=== PATIENT | female | born 1960 | race Caucasian/White ===

== ENCOUNTER 2017-10-18 13:35 | Inpatient (IN) | payer OTHER ==
[2017-10-18 14:50] LABS: ADD MAN DIFF? NO
[2017-10-18 14:53] LABS: BASOPHILS % 0.6 % (0.0-2.0); EOSINOPHILS # 0.1 10^3/ul (0.0-0.5); EOSINOPHILS % 3.4 % (0.0-7.0); HEMATOCRIT 30.2 % (37.0-47.0); HEMOGLOBIN 9.3 g/dl (12.0-16.0); LYMPHOCYTES # 1.3 10^3/ul (0.8-2.9); LYMPHOCYTES % 41.1 % (15.0-51.0); MEAN CORPUSCULAR HEMOGLOBIN 29.4 pg (29.0-33.0); MEAN CORPUSCULAR HGB CONC 30.8 g/dl (32.0-37.0); MEAN CORPUSCULAR VOLUME 95.6 fl (82.0-101.0); MEAN PLATELET VOLUME 9.5 fl (7.4-10.4); MONOCYTE # 0.3 10^3/ul (0.3-0.9); MONOCYTES % 10.3 % (0.0-11.0); NEUTROPHIL # 1.4 10^3/ul (1.6-7.5); PLATELET COUNT 192 10^3/UL (140-415); RED BLOOD COUNT 3.16 10^6/ul (4.20-5.40); RED CELL DISTRIBUTION WIDTH 13.3 % (11.5-14.5)
[2017-10-18 14:53] LABS: WHITE BLOOD COUNT 3.2 10^3/ul (4.8-10.8)
[2017-10-18 14:58] LABS: HOLD TRANSMISSIONS 1
[2017-10-18 15:10] LABS: INR 0.95; PARTIAL THROMBOPLASTIN TIME 27.7 Sec (25.0-35.0); PROTIME 12.8 Sec (11.9-14.9)
[2017-10-18 15:13] LABS: ALANINE AMINOTRANSFERASE 23 IU/L (13-69); ALBUMIN 3.8 g/dl (3.3-4.9); ALBUMIN/GLOBULIN RATIO 1.22; ALKALINE PHOSPHATASE 39 IU/L (42-121); ANION GAP 12 (8-16); ASPARTATE AMINO TRANSFERASE 21 IU/L (15-46); BILIRUBIN,INDIRECT 0.1 mg/dl (0-1.1); BILIRUBIN,TOTAL 0.1 mg/dl (0.2-1.3); CARBON DIOXIDE 26 mmol/L (21-31); CHLORIDE 107 mmol/L (97-110); GLUCOSE 102 mg/dl (70-220); TOTAL PROTEIN 6.9 g/dl (6.1-8.1)
[2017-10-18 15:15] LABS: BLOOD UREA NITROGEN 46 mg/dl (7-20); CALCIUM 9.3 mg/dl (8.4-10.2); CREATININE 2.19 mg/dl (0.44-1.00); POTASSIUM 4.8 mmol/L (3.5-5.1); SODIUM 140 mmol/L (135-144)
[2017-10-18] MEDS ORDERED: ROPIVACAINE 0.5 % 30 ML VIAL (18:03)
[2017-10-18] MEDS ORDERED: GELATIN SIZE 100 SPONGE (18:03)
[2017-10-18] MEDS ORDERED: THROMBIN 5000 UNIT VIAL (18:04)
[2017-10-18] MEDS ORDERED: POLYMYXIN/BACITRACIN 1L IRRIG ×2 (18:04→18:11)
[2017-10-18] MEDS ORDERED: MIDAZOLAM 1 MG/ML 2 ML INJ (18:25)
[2017-10-18] MEDS ORDERED: METOCLOPRAMIDE 10 MG INJ (18:25)
[2017-10-18] MEDS ORDERED: LABETALOL HCL 20MG INJ (19:00)
[2017-10-18] MEDS ORDERED: SUCCINYLCHOLINE CHLORIDE 100 MG/5 ML SYG IV (19:58)
[2017-10-18] MEDS ORDERED: ROCURONIUM 50 MG INJ (19:58)
[2017-10-18] MEDS ORDERED: PROPOFOL 20 ML (19:58)
[2017-10-18 19:59] LABS: HEMOGLOBIN A1C 6.3 % (0-5.9)
[2017-10-18] MEDS: PROPOFOL 100 ML IV ×3 (21:10→23:40)
[2017-10-18] MEDS: NS + KCL 20 MEQ 1,000 ML IV (21:44)
[2017-10-18 21:52] LABS: AADO2 Arterial 222.2 mmHg (7.0-24.0); Allen Test ACCEPTAB; Arterial Base Excess -4.3 mmol/L (-3.0-3); Arterial Blood Gas Oxygen Sat 98.9 mmHG (95.0-98.0); Arterial COHb 0.1 % (0.0-3.0); Arterial Fraction of Oxyhgb 98.5 % (93.0-99.0); Arterial HCO3 20.5 mmol/L (22.0-26.0); Arterial MetHb 0.3 % (0.0-1.5); Arterial pCO2 36.2 mmhg (35-45); MODE VENT - AC; Site Right Radial
[2017-10-18 22:21] LABS: INR 0.99; PROTIME 13.2 Sec (11.9-14.9)
[2017-10-18 22:22] LABS: PARTIAL THROMBOPLASTIN TIME 28.3 Sec (25.0-35.0)
[2017-10-18] MEDS: LORAZEPAM 2 MG INJ IV (22:42)
[2017-10-18 22:43] LABS: FIBRIN SPLIT PRODUCT <10 ug/ml (<10)
[2017-10-18] MEDS ORDERED: GLUCAGON 1 MG INJ IM (23:00)
[2017-10-18] MEDS ORDERED: GLUCOSE GEL 15 GRAM TUBE PO ×2 (23:00)
[2017-10-18] MEDS ORDERED: DEXTROSE 50% 50 ML SYRINGE IV ×2 (23:00)
[2017-10-18] MEDS ORDERED: GLUCOSE GEL 15 GRAM TUBE BUCCAL (23:00)
[2017-10-19] MEDS: PROPOFOL 100 ML IV ×6 (01:10→13:57)
[2017-10-19] MEDS: LORAZEPAM 2 MG INJ IV (05:14)
[2017-10-19] MEDS: NS + KCL 20 MEQ 1,000 ML IV ×2 (05:14→06:14)
[2017-10-19] MEDS: INSULIN ASPART [NOVOLOG] 3 ML PEN SC ×5 (05:24→21:00)
[2017-10-19] MEDS: morphine 2 MG INJ IV ×3 (08:25→20:40)
[2017-10-19] MEDS: hydrALAzine 20 MG INJ IV (09:06)
[2017-10-19 09:33] LABS: AADO2 Arterial 151.7 mmHg (7.0-24.0); Arterial Base Excess -9.1 mmol/L (-3.0-3); Arterial Blood Gas Oxygen Sat 98.3 mmHG (95.0-98.0); Arterial COHb 0.5 % (0.0-3.0); Arterial Fraction of Oxyhgb 97.2 % (93.0-99.0); Arterial HCO3 15.1 mmol/L (22.0-26.0); Arterial MetHb 0.6 % (0.0-1.5); Arterial Total Hemglobin 7.8 g/dl (12.0-18.0); Arterial pCO2 26.6 mmhg (35-45); MODE VENT - AC; Site A-Line
[2017-10-19 09:40] LABS: ADD MAN DIFF? NO
[2017-10-19 09:44] LABS: BASOPHILS % 0.3 % (0.0-2.0); EOSINOPHILS # 0.1 10^3/ul (0.0-0.5); EOSINOPHILS % 0.8 % (0.0-7.0); HEMOGLOBIN 9.4 g/dl (12.0-16.0); LYMPHOCYTES # 1.5 10^3/ul (0.8-2.9); LYMPHOCYTES % 19.8 % (15.0-51.0); MEAN CORPUSCULAR HEMOGLOBIN 30.2 pg (29.0-33.0); MEAN CORPUSCULAR HGB CONC 32.4 g/dl (32.0-37.0); MEAN CORPUSCULAR VOLUME 93.2 fl (82.0-101.0); MEAN PLATELET VOLUME 9.8 fl (7.4-10.4); MONOCYTE # 0.5 10^3/ul (0.3-0.9); MONOCYTES % 6.7 % (0.0-11.0); NEUTROPHIL # 5.4 10^3/ul (1.6-7.5); NEUTROPHILS % 72.1 % (39.0-77.0); PLATELET COUNT 208 10^3/UL (140-415); RED BLOOD COUNT 3.11 10^6/ul (4.20-5.40); RED CELL DISTRIBUTION WIDTH 13.4 % (11.5-14.5)
[2017-10-19 09:44] LABS: WHITE BLOOD COUNT 7.4 10^3/ul (4.8-10.8)
[2017-10-19] MEDS: FENTAnyl (DRIP) 1000 mcg/100mL 100 ML IV (09:48)
[2017-10-19 10:14] LABS: ALANINE AMINOTRANSFERASE 22 IU/L (13-69); ALBUMIN 3.5 g/dl (3.3-4.9); ALBUMIN/GLOBULIN RATIO 1.12; ALKALINE PHOSPHATASE 40 IU/L (42-121); ANION GAP 12 (8-16); ASPARTATE AMINO TRANSFERASE 21 IU/L (15-46); BLOOD UREA NITROGEN 35 mg/dl (7-20); CALCIUM 8.9 mg/dl (8.4-10.2); CARBON DIOXIDE 22 mmol/L (21-31); CHLORIDE 113 mmol/L (97-110); CREATININE 1.53 mg/dl (0.44-1.00); GLUCOSE 123 mg/dl (70-220); MAGNESIUM 1.9 mg/dl (1.7-2.5); POTASSIUM 4.5 mmol/L (3.5-5.1); SODIUM 142 mmol/L (135-144); TOTAL PROTEIN 6.6 g/dl (6.1-8.1)
[2017-10-19] MEDS: DEXTROSE 5%-0.45% NACL 1,000 ML IV (13:21)
[2017-10-19] MEDS ORDERED: ALPRAZOLAM 0.5 MG TAB (15:04)
[2017-10-19] MEDS: ALBUTEROL/IPRATROPIUM (NEB) 3 ML AMP HHN ×2 (16:35→20:36)
[2017-10-19] MEDS ORDERED: HYDROCODONE/APAP (5/325) TAB PO (17:00)
[2017-10-19 17:38] LABS: AADO2 Arterial 156.7 mmHg (7.0-24.0); Arterial Base Excess -4.4 mmol/L (-3.0-3); Arterial Blood Gas Oxygen Sat 98.4 mmHG (95.0-98.0); Arterial COHb 0.3 % (0.0-3.0); Arterial Fraction of Oxyhgb 97.8 % (93.0-99.0); Arterial HCO3 19.4 mmol/L (22.0-26.0); Arterial MetHb 0.3 % (0.0-1.5); Arterial Total Hemglobin 10.6 g/dl (12.0-18.0); Arterial pCO2 31.4 mmhg (35-45); Blood Gas PS 10; MODE VENT - CPAP; Site A-Line
[2017-10-19] MEDS: SOD CHLORIDE 0.45% 1,000 ML IV (18:08)
[2017-10-19] MEDS: LISINOPRIL 5 MG TAB PO (18:08)
[2017-10-19] MEDS ORDERED: NON-FORMULARY/PATIENT OWN MED (Simvastatin 20 MG) PO (21:00)
[2017-10-19] MEDS: MONTELUKAST 10 MG TAB PO (21:17)
[2017-10-19] MEDS: GABAPENTIN 400 MG CAP PO (21:17)
[2017-10-19] MEDS: NIACIN (ER) 500 MG TAB PO ×2 (21:17→21:23)
[2017-10-19] MEDS: ATORVASTATIN 10 MG TAB PO ×2 (21:17→21:27)
[2017-10-19] MEDS: QUETIAPINE 100 MG TAB PO (21:17)
[2017-10-20] MEDS: ACCU-CHEK XX (02:00)
[2017-10-20] MEDS: SOD CHLORIDE 0.9% 1,000 ML IV ×2 (04:20→05:21)
[2017-10-20] MEDS: PANTOPRAZOLE 40 MG INJ IV (05:16)
[2017-10-20 05:52] LABS: ADD MAN DIFF? NO
[2017-10-20 05:58] LABS: BASOPHILS % 0.3 % (0.0-2.0); EOSINOPHILS % 0.1 % (0.0-7.0); HEMATOCRIT 23.9 % (37.0-47.0); HEMOGLOBIN 7.4 g/dl (12.0-16.0); LYMPHOCYTES # 1.7 10^3/ul (0.8-2.9); LYMPHOCYTES % 24.9 % (15.0-51.0); MEAN CORPUSCULAR HEMOGLOBIN 29.8 pg (29.0-33.0); MEAN CORPUSCULAR VOLUME 96.4 fl (82.0-101.0); MEAN PLATELET VOLUME 9.8 fl (7.4-10.4); MONOCYTE # 0.7 10^3/ul (0.3-0.9); MONOCYTES % 10.1 % (0.0-11.0); NEUTROPHIL # 4.5 10^3/ul (1.6-7.5); NEUTROPHILS % 64.2 % (39.0-77.0); PLATELET COUNT 175 10^3/UL (140-415); RED BLOOD COUNT 2.48 10^6/ul (4.20-5.40)
[2017-10-20] MEDS: SOD CHLORIDE 0.45% 1,000 ML IV (06:26)
[2017-10-20 06:31] LABS: ANION GAP 9 (8-16); BLOOD UREA NITROGEN 29 mg/dl (7-20); CALCIUM 7.9 mg/dl (8.4-10.2); CARBON DIOXIDE 22 mmol/L (21-31); CHLORIDE 111 mmol/L (97-110); CREATININE 1.58 mg/dl (0.44-1.00); GLUCOSE 114 mg/dl (70-220); MAGNESIUM 1.7 mg/dl (1.7-2.5); PHOSPHORUS 3.5 mg/dl (2.5-4.9); SODIUM 138 mmol/L (135-144)
[2017-10-20] MEDS: PROPOFOL 100 ML IV ×2 (07:30→18:00)
[2017-10-20] MEDS: INSULIN ASPART [NOVOLOG] 3 ML PEN SC ×4 (07:35→22:40)
[2017-10-20] MEDS: ALBUTEROL/IPRATROPIUM (NEB) 3 ML AMP HHN ×3 (08:27→20:03)
[2017-10-20] MEDS: LINAGLIPTIN 5 MG TABLET PO (08:40)
[2017-10-20] MEDS: SERTRALINE 100 MG TAB PO (08:40)
[2017-10-20] MEDS: LISINOPRIL 5 MG TAB PO (08:40)
[2017-10-20] MEDS: CALCITRIOL 0.25 MCG CAP PO (08:41)
[2017-10-20] MEDS: FLUTICASONE/VILANTEROL 200-25 INH DEVICE INH (08:41)
[2017-10-20] MEDS: GABAPENTIN 400 MG CAP PO ×3 (08:41→22:22)
[2017-10-20] MEDS: FENOFIBRATE 48 MG TAB PO (08:41)
[2017-10-20] MEDS ORDERED: NON-FORMULARY/PATIENT OWN MED (Fenofibrate, Micronized (Fenofibrate) 54 MG) PO (09:00)
[2017-10-20] MEDS ORDERED: NON-FORMULARY/PATIENT OWN MED (Sitagliptin* (Januvia*) 100 MG) PO (09:00)
[2017-10-20 13:09] LABS: IMMEDIATE SPIN CROSSMATCH 1 1
[2017-10-20] MEDS: EPOETIN 3000 UNITS/1 ML INJ (ESRD) SC (17:59)
[2017-10-20] MEDS: QUETIAPINE 100 MG TAB PO (22:22)
[2017-10-20] MEDS: MONTELUKAST 10 MG TAB PO (22:22)
[2017-10-21] MEDS: SOD CHLORIDE 0.45% 1,000 ML IV ×3 (00:46→16:56)
[2017-10-21] MEDS: ALBUTEROL/IPRATROPIUM (NEB) 3 ML AMP HHN ×4 (01:52→20:11)
[2017-10-21] MEDS: ACCU-CHEK XX (01:54)
[2017-10-21 05:50] LABS: ADD MAN DIFF? NO
[2017-10-21] MEDS: PANTOPRAZOLE 40 MG INJ IV (05:53)
[2017-10-21] MEDS: PROPOFOL 100 ML IV (05:55)
[2017-10-21 05:59] LABS: BASOPHILS % 0.5 % (0.0-2.0); EOSINOPHILS # 0.1 10^3/ul (0.0-0.5); EOSINOPHILS % 1.7 % (0.0-7.0); HEMOGLOBIN 8.8 g/dl (12.0-16.0); LYMPHOCYTES # 2.1 10^3/ul (0.8-2.9); MEAN CORPUSCULAR HEMOGLOBIN 29.7 pg (29.0-33.0); MEAN CORPUSCULAR HGB CONC 31.4 g/dl (32.0-37.0); MEAN CORPUSCULAR VOLUME 94.6 fl (82.0-101.0); MEAN PLATELET VOLUME 9.9 fl (7.4-10.4); MONOCYTE # 0.6 10^3/ul (0.3-0.9); MONOCYTES % 9.1 % (0.0-11.0); NEUTROPHIL # 3.6 10^3/ul (1.6-7.5); NEUTROPHILS % 55.9 % (39.0-77.0); PLATELET COUNT 185 10^3/UL (140-415); RED BLOOD COUNT 2.96 10^6/ul (4.20-5.40); RED CELL DISTRIBUTION WIDTH 14.5 % (11.5-14.5)
[2017-10-21 05:59] LABS: WHITE BLOOD COUNT 6.5 10^3/ul (4.8-10.8)
[2017-10-21 06:27] LABS: ANION GAP 11 (8-16); BLOOD UREA NITROGEN 28 mg/dl (7-20); CALCIUM 8.6 mg/dl (8.4-10.2); CARBON DIOXIDE 22 mmol/L (21-31); CHLORIDE 113 mmol/L (97-110); CREATININE 1.43 mg/dl (0.44-1.00); GLUCOSE 121 mg/dl (70-220); POTASSIUM 4.3 mmol/L (3.5-5.1); SODIUM 142 mmol/L (135-144)
[2017-10-21] MEDS: INSULIN ASPART [NOVOLOG] 3 ML PEN SC ×4 (07:35→21:17)
[2017-10-21] MEDS: LINAGLIPTIN 5 MG TABLET PO (08:12)
[2017-10-21] MEDS: CALCITRIOL 0.25 MCG CAP PO (08:12)
[2017-10-21] MEDS: GABAPENTIN 400 MG CAP PO ×3 (08:12→21:06)
[2017-10-21] MEDS: LISINOPRIL 5 MG TAB PO (08:13)
[2017-10-21] MEDS: SERTRALINE 100 MG TAB PO (08:13)
[2017-10-21] MEDS: FENOFIBRATE 48 MG TAB PO (08:13)
[2017-10-21] MEDS: FLUTICASONE/VILANTEROL 200-25 INH DEVICE INH (08:15)
[2017-10-21] MEDS: CEPASTAT LOZENGE MT ×2 (08:25→21:27)
[2017-10-21] MEDS ORDERED: METHYLPREDNISOLONE 40 MG INJ IV (15:30)
[2017-10-21] MEDS ORDERED: LEVOFLOXACIN 500 MG TAB PO (16:00)
[2017-10-21] MEDS: LEVOFLOXACIN 500 MG TAB PO (16:42)
[2017-10-21] MEDS: METHYLPREDNISOLONE 40 MG INJ IV (16:43)
[2017-10-21] MEDS: MONTELUKAST 10 MG TAB PO (21:06)
[2017-10-21] MEDS: QUETIAPINE 100 MG TAB PO (21:06)
[2017-10-21] MEDS: NIACIN (ER) 500 MG TAB PO (21:06)
[2017-10-22] MEDS: METHYLPREDNISOLONE 40 MG INJ IV ×3 (01:58→20:59)
[2017-10-22] MEDS: BENZONATATE 100 MG CAP PO (02:00)
[2017-10-22] MEDS: ACCU-CHEK XX (02:00)
[2017-10-22] MEDS: PANTOPRAZOLE 40 MG INJ IV (05:42)
[2017-10-22] MEDS: LEVOFLOXACIN 500 MG TAB PO (05:42)
[2017-10-22] MEDS: LORAZEPAM 2 MG INJ IV (07:26)
[2017-10-22] MEDS: morphine LIQ (10 MG/5 ML) CUP PO (07:35)
[2017-10-22] MEDS: SOD CHLORIDE 0.45% 1,000 ML IV (07:35)
[2017-10-22] MEDS: ALBUTEROL/IPRATROPIUM (NEB) 3 ML AMP HHN ×3 (09:17→19:37)
[2017-10-22 10:57] LABS: ADD MAN DIFF? NO
[2017-10-22 10:58] LABS: WHITE BLOOD COUNT 9.3 10^3/ul (4.8-10.8)
[2017-10-22 10:58] LABS: BASOPHILS % 0.2 % (0.0-2.0); HEMATOCRIT 31.2 % (37.0-47.0); HEMOGLOBIN 9.6 g/dl (12.0-16.0); LYMPHOCYTES # 1.4 10^3/ul (0.8-2.9); LYMPHOCYTES % 14.9 % (15.0-51.0); MEAN CORPUSCULAR HEMOGLOBIN 29.6 pg (29.0-33.0); MEAN CORPUSCULAR HGB CONC 30.8 g/dl (32.0-37.0); MEAN CORPUSCULAR VOLUME 96.3 fl (82.0-101.0); MEAN PLATELET VOLUME 10.1 fl (7.4-10.4); MONOCYTE # 0.4 10^3/ul (0.3-0.9); MONOCYTES % 4.6 % (0.0-11.0); NEUTROPHIL # 7.3 10^3/ul (1.6-7.5); NEUTROPHILS % 78.6 % (39.0-77.0); PLATELET COUNT 203 10^3/UL (140-415); RED BLOOD COUNT 3.24 10^6/ul (4.20-5.40); RED CELL DISTRIBUTION WIDTH 13.7 % (11.5-14.5)
[2017-10-22] MEDS: CALCITRIOL 0.25 MCG CAP PO (11:04)
[2017-10-22] MEDS: FENOFIBRATE 48 MG TAB PO (11:05)
[2017-10-22] MEDS: LINAGLIPTIN 5 MG TABLET PO (11:05)
[2017-10-22] MEDS: GABAPENTIN 400 MG CAP PO ×3 (11:06→20:17)
[2017-10-22] MEDS: SERTRALINE 100 MG TAB PO (11:06)
[2017-10-22] MEDS: LISINOPRIL 5 MG TAB PO (11:06)
[2017-10-22] MEDS: ERGOCALCIFEROL 50,000 UNIT CAP PO (11:06)
[2017-10-22] MEDS: INSULIN ASPART [NOVOLOG] 3 ML PEN SC ×4 (11:09→20:59)
[2017-10-22 11:26] LABS: ANION GAP 16 (8-16); BLOOD UREA NITROGEN 29 mg/dl (7-20); CALCIUM 8.9 mg/dl (8.4-10.2); CARBON DIOXIDE 20 mmol/L (21-31); CHLORIDE 109 mmol/L (97-110); CREATININE 1.36 mg/dl (0.44-1.00); GLUCOSE 157 mg/dl (70-220); POTASSIUM 4.9 mmol/L (3.5-5.1); SODIUM 140 mmol/L (135-144)
[2017-10-22] MEDS: FLUTICASONE/VILANTEROL 200-25 INH DEVICE INH (12:56)
[2017-10-22] MEDS: QUETIAPINE 100 MG TAB PO (20:17)
[2017-10-22] MEDS: MONTELUKAST 10 MG TAB PO (20:17)
[2017-10-22] MEDS: NIACIN (ER) 500 MG TAB PO (20:17)
[2017-10-23] MEDS: traMADol 50 MG TAB PO ×3 (00:06→22:00)
[2017-10-23] MEDS: ACCU-CHEK XX (02:00)
[2017-10-23] MEDS: SOD CHLORIDE 0.45% 1,000 ML IV ×3 (05:03→21:46)
[2017-10-23] MEDS: PANTOPRAZOLE 40 MG INJ IV (06:28)
[2017-10-23] MEDS: LEVOFLOXACIN 500 MG TAB PO (06:28)
[2017-10-23] MEDS: ALBUTEROL/IPRATROPIUM (NEB) 3 ML AMP HHN ×3 (07:50→20:33)
[2017-10-23] MEDS: INSULIN ASPART [NOVOLOG] 3 ML PEN SC ×4 (09:13→22:12)
[2017-10-23] MEDS: SERTRALINE 100 MG TAB PO (09:14)
[2017-10-23] MEDS: LINAGLIPTIN 5 MG TABLET PO (09:14)
[2017-10-23] MEDS: CALCITRIOL 0.25 MCG CAP PO (09:14)
[2017-10-23] MEDS: FENOFIBRATE 48 MG TAB PO (09:15)
[2017-10-23] MEDS: GABAPENTIN 400 MG CAP PO ×3 (09:15→21:58)
[2017-10-23] MEDS: LISINOPRIL 5 MG TAB PO (09:16)
[2017-10-23] MEDS: FLUTICASONE/VILANTEROL 200-25 INH DEVICE INH (09:16)
[2017-10-23] MEDS: METHYLPREDNISOLONE 40 MG INJ IV ×2 (09:17→22:05)
[2017-10-23 13:27] LABS: SODIUM,URINE RANDOM 135 mmol/L (30-90)
[2017-10-23 13:30] LABS: CREATININE,URINE RANDOM 45.27 mg/dl (20-320); PROTEIN/CREAT RATIO 0.24 RATIO
[2017-10-23 15:06] LABS: ADD MAN DIFF? NO
[2017-10-23 15:26] LABS: URIC ACID 6.9 mg/dl (3.1-7.9)
[2017-10-23 15:29] LABS: WHITE BLOOD COUNT 10.9 10^3/ul (4.8-10.8)
[2017-10-23 15:29] LABS: BASOPHILS % 0.4 % (0.0-2.0); HEMATOCRIT 32.7 % (37.0-47.0); HEMOGLOBIN 10.3 g/dl (12.0-16.0); LYMPHOCYTES # 1.7 10^3/ul (0.8-2.9); LYMPHOCYTES % 15.7 % (15.0-51.0); MEAN CORPUSCULAR HEMOGLOBIN 29.9 pg (29.0-33.0); MEAN CORPUSCULAR HGB CONC 31.5 g/dl (32.0-37.0); MEAN CORPUSCULAR VOLUME 94.8 fl (82.0-101.0); MEAN PLATELET VOLUME 9.6 fl (7.4-10.4); MONOCYTE # 0.4 10^3/ul (0.3-0.9); MONOCYTES % 3.7 % (0.0-11.0); NEUTROPHIL # 8.4 10^3/ul (1.6-7.5); NEUTROPHILS % 76.5 % (39.0-77.0); NUCLEATED RED BLOOD CELLS% 0.4 /100WBC (0.0-0.0); PLATELET COUNT 287 10^3/UL (140-415); RED BLOOD COUNT 3.45 10^6/ul (4.20-5.40); RED CELL DISTRIBUTION WIDTH 13.7 % (11.5-14.5)
[2017-10-23 15:54] LABS: ANION GAP 18 (8-16); BLOOD UREA NITROGEN 34 mg/dl (7-20); CALCIUM 9.2 mg/dl (8.4-10.2); CARBON DIOXIDE 19 mmol/L (21-31); CHLORIDE 109 mmol/L (97-110); CREATININE 1.43 mg/dl (0.44-1.00); GLUCOSE 186 mg/dl (70-220); POTASSIUM 4.5 mmol/L (3.5-5.1); SODIUM 141 mmol/L (135-144)
[2017-10-23] MEDS: QUETIAPINE 100 MG TAB PO (21:51)
[2017-10-23] MEDS: NIACIN (ER) 500 MG TAB PO (21:51)
[2017-10-23] MEDS: MONTELUKAST 10 MG TAB PO (21:52)
[2017-10-23] MEDS: BENZONATATE 100 MG CAP PO (21:58)
[2017-10-24] MEDS: ACCU-CHEK XX (02:00)
[2017-10-24] MEDS: PANTOPRAZOLE 40 MG INJ IV (06:37)
[2017-10-24] MEDS: LEVOFLOXACIN 500 MG TAB PO (07:38)
[2017-10-24] MEDS: ACETAMINOPHEN 325 MG TAB PO (07:41)
[2017-10-24] MEDS: ALBUTEROL/IPRATROPIUM (NEB) 3 ML AMP HHN ×3 (08:29→20:46)
[2017-10-24] MEDS: FLUTICASONE/VILANTEROL 200-25 INH DEVICE INH (09:20)
[2017-10-24] MEDS: GABAPENTIN 400 MG CAP PO ×3 (09:21→20:43)
[2017-10-24] MEDS: CALCITRIOL 0.25 MCG CAP PO (09:22)
[2017-10-24] MEDS: SERTRALINE 100 MG TAB PO (09:22)
[2017-10-24] MEDS: LINAGLIPTIN 5 MG TABLET PO (09:22)
[2017-10-24] MEDS: FENOFIBRATE 48 MG TAB PO (09:23)
[2017-10-24] MEDS: LISINOPRIL 5 MG TAB PO (09:24)
[2017-10-24] MEDS: METHYLPREDNISOLONE 40 MG INJ IV ×2 (09:24→20:44)
[2017-10-24] MEDS: BENZONATATE 100 MG CAP PO ×2 (09:25→21:20)
[2017-10-24] MEDS: INSULIN ASPART [NOVOLOG] 3 ML PEN SC ×4 (09:26→20:51)
[2017-10-24 10:51] LABS: ADD MAN DIFF? NO
[2017-10-24 10:55] LABS: WHITE BLOOD COUNT 13.2 10^3/ul (4.8-10.8)
[2017-10-24 10:55] LABS: BASOPHILS % 0.3 % (0.0-2.0); EOSINOPHILS % 0.1 % (0.0-7.0); HEMOGLOBIN 10.6 g/dl (12.0-16.0); LYMPHOCYTES % 22.4 % (15.0-51.0); MEAN CORPUSCULAR HGB CONC 32.1 g/dl (32.0-37.0); MEAN CORPUSCULAR VOLUME 93.5 fl (82.0-101.0); MEAN PLATELET VOLUME 9.6 fl (7.4-10.4); MONOCYTE # 0.9 10^3/ul (0.3-0.9); NEUTROPHIL # 8.9 10^3/ul (1.6-7.5); NEUTROPHILS % 67.3 % (39.0-77.0); NUCLEATED RED BLOOD CELLS% 0.3 /100WBC (0.0-0.0); PLATELET COUNT 303 10^3/UL (140-415); RED BLOOD COUNT 3.53 10^6/ul (4.20-5.40); RED CELL DISTRIBUTION WIDTH 13.7 % (11.5-14.5)
[2017-10-24 11:16] LABS: ANION GAP 15 (8-16); BLOOD UREA NITROGEN 37 mg/dl (7-20); CALCIUM 9.5 mg/dl (8.4-10.2); CARBON DIOXIDE 22 mmol/L (21-31); CHLORIDE 108 mmol/L (97-110); CREATININE 1.32 mg/dl (0.44-1.00); GLUCOSE 174 mg/dl (70-220); POTASSIUM 4.5 mmol/L (3.5-5.1); SODIUM 140 mmol/L (135-144)
[2017-10-24] MEDS: MONTELUKAST 10 MG TAB PO (20:44)
[2017-10-24] MEDS: NIACIN (ER) 500 MG TAB PO (20:44)
[2017-10-24] MEDS: QUETIAPINE 100 MG TAB PO (20:44)
[2017-10-24] MEDS: traMADol 50 MG TAB PO (21:11)
[2017-10-24] MEDS ORDERED: HYDROCODONE/HOMATROPINE 5ML CUP PO (22:00)
[2017-10-25] MEDS: ACCU-CHEK XX (02:21)
[2017-10-25] MEDS: PANTOPRAZOLE 40 MG INJ IV (06:00)
[2017-10-25] MEDS: LEVOFLOXACIN 500 MG TAB PO (06:38)
[2017-10-25] MEDS: ALBUTEROL/IPRATROPIUM (NEB) 3 ML AMP HHN (08:24)
[2017-10-25] MEDS: CALCITRIOL 0.25 MCG CAP PO (08:36)
[2017-10-25] MEDS: SERTRALINE 100 MG TAB PO (08:37)
[2017-10-25] MEDS: LISINOPRIL 5 MG TAB PO (08:37)
[2017-10-25] MEDS: LINAGLIPTIN 5 MG TABLET PO (08:37)
[2017-10-25] MEDS: FLUTICASONE/VILANTEROL 200-25 INH DEVICE INH (08:38)
[2017-10-25] MEDS: METHYLPREDNISOLONE 40 MG INJ IV (08:39)
[2017-10-25] MEDS: INSULIN ASPART [NOVOLOG] 3 ML PEN SC (08:44)
[2017-10-25] MEDS: FENOFIBRATE 48 MG TAB PO (08:46)
[2017-10-25] MEDS: GABAPENTIN 400 MG CAP PO (08:46)
== END 2017-10-25 11:45 | disposition home health service (06) | DRG 551 ==
LOC: REC 13:35 → MS1 10-22 11:40 → ICU 20:39 → MS1 10-21 10:00
PROVIDERS: Neurological Surgery
PROC: 5A1935Z Respiratory Ventilation, Less than 24 Consecutive Hours (ICD-10-PCS; principal; 2017-10-18 18:23)
PROC: 0BH17EZ Insertion of Endotracheal Airway into Trachea, Via Natural or Artificial Opening (ICD-10-PCS; 2017-10-18 18:23)
DX: M54.16 Radiculopathy, lumbar region (principal); J96.90 Respiratory failure, unspecified, unspecified whether with hypoxia or hypercapnia; J95.62 Intraoperative hemorrhage and hematoma of a respiratory system organ or structure complicating other procedure; Z68.42 Body mass index [BMI] 45.0-49.9, adult; N17.9 Acute kidney failure, unspecified; M54.12 Radiculopathy, cervical region; E66.01 Morbid (severe) obesity due to excess calories; Y83.8 Other surgical procedures as the cause of abnormal reaction of the patient, or of later complication, without mention of misadventure at the time of the procedure; Y92.234 Operating room of hospital as the place of occurrence of the external cause; I10 Essential (primary) hypertension; E11.9 Type 2 diabetes mellitus without complications; J45.909 Unspecified asthma, uncomplicated; F32.9 Major depressive disorder, single episode, unspecified; E78.5 Hyperlipidemia, unspecified
CPT/HCPCS: 36430; 36600; 71045; 80048; 80053; 81003; 82570; 82803; 82962; 83036; 83735; 84100; 84300; 84560; 85025; 85362; 85384; 85610; 85730; 86850; 86900; 86901; 86920; 87040; 87081; 94002; 94003; 94640; 94770; 97116; 97161; 97530